=== PATIENT | female | born 1965 | race Caucasian/White ===

== ENCOUNTER 2024-01-02 12:03 | Observation (INO) | payer OTHER ==
[2024-01-02] MEDS ORDERED: FAMOTIDINE 20 MG/50 ML IVPB 20 MG/50 ML MG IVPB ONE (13:22)
[2024-01-02] MEDS ORDERED: METOCLOPRAMIDE HCL INJECTION 10 MG/2 ML VIAL ONE (13:22)
[2024-01-02] MEDS: LACTATED RINGERS SOLUTION 1000 ML INFUS.BAG IV ONE (13:41)
[2024-01-02] MEDS: METOCLOPRAMIDE HCL INJECTION 10 MG/2 ML VIAL IVPB ONE (13:41)
[2024-01-02] MEDS: FAMOTIDINE 20 MG/50 ML IVPB 20 MG/50 ML MG IVPB ONE (13:41)
[2024-01-02 13:53] LABS: BASO % 0.6 % (0-2.0); EOS % 0.4 % (0-4.5); HEMATOCRIT 40.9 % (32.4-45.2); HEMOGLOBIN 13.6 GM/dL (10.7-15.3); LYMPH % 16.9 % (8-40); MCH 29.2 pg (25.7-33.7); MCHC 33.3 g/dl (32.0-36.0); MEAN CELL VOLUME 87.7 fl (80-96); MEAN PLT VOLUME 8.3 fl (7.5-11.1); MONO % 4.2 % (3.8-10.2); NEUT % 77.9 % (42.8-82.8); PLATELET COUNT 234 10^3/uL (134-434); RBC 4.66 M/mm3 (3.60-5.2); RDW 14.2 % (11.6-15.6); WHITE BLOOD COUNT 5.9 K/mm3 (4.0-10.0)
[2024-01-02 13:54] LABS: URINE APPEARANCE CLEAR; URINE BILIRUBIN NEGATIVE (NEGATIVE); URINE COLOR YELLOW; URINE GLUCOSE (UA) NEGATIVE (NEGATIVE); URINE KETONE NEGATIVE (NEGATIVE); URINE LEUK ESTERASE NEGATIVE (NEGATIVE); URINE NITRITE NEGATIVE (NEGATIVE); URINE PROTEIN NEGATIVE (NEGATIVE); URINE UROBILINOGEN 0.2 mg/dL (0.2-1.0)
[2024-01-02 14:00] LABS: INR 2.66 (0.83-1.09); PROTHROMBIN TIME (PATIENT) 30.6 SEC (9.7-13.0)
[2024-01-02 14:03] LABS: ACTIVATED PTT 47.1 SECONDS (25.2-36.5)
[2024-01-02 14:04] LABS: POTASSIUM 3.9 mmol/L (3.5-5.1)
[2024-01-02 14:07] LABS: CALCIUM 9.6 mg/dL (8.5-10.1)
[2024-01-02 14:08] LABS: ALBUMIN 4.1 g/dl (3.4-5.0); BLOOD UREA NITROGEN 13.5 mg/dL (7-18)
[2024-01-02 14:11] LABS: CREATININE 0.7 mg/dL (0.55-1.3)
[2024-01-02 14:12] LABS: BILIRUBIN,TOTAL 0.9 mg/dL (0.2-1); TOT PROT 7.8 g/dl (6.4-8.2)
[2024-01-02] MEDS ORDERED: MECLIZINE HCL 25 MG TABLET (FP) ONE (14:54)
[2024-01-02] MEDS: MECLIZINE HCL 25 MG TABLET (FP) PO ONE (15:23)
[2024-01-02] MEDS ORDERED: MECLIZINE HCL 25 MG TABLET (FP) PO PRN (17:21)
[2024-01-02] MEDS ORDERED: ONDANSETRON 4 MG/2 ML VIAL IVPUSH PRN (17:21)
[2024-01-02] MEDS: SODIUM CHLORIDE 0.45% 1,000 ML IV SCH (18:05)
[2024-01-02] MEDS ORDERED: WARFARIN NA 1 MG TABLET ONE (19:08)
[2024-01-02] MEDS: WARFARIN NA 2 MG TABLET PO SCH (19:10)
[2024-01-02] MEDS: ATORVASTATIN CA 40 MG TABLET (FP) PO SCH (21:41)
[2024-01-03 00:58] VITALS: RESP 18; BMI 23.3
[2024-01-03 07:18] LABS: BASO % 0.9 % (0-2.0); HEMOGLOBIN 11.9 GM/dL (10.7-15.3); INR 3.12 (0.83-1.09); MCH 29.8 pg (25.7-33.7); MCHC 34.1 g/dl (32.0-36.0); MEAN CELL VOLUME 87.4 fl (80-96); MEAN PLT VOLUME 8.6 fl (7.5-11.1); MONO % 7.6 % (3.8-10.2); NEUT % 52.5 % (42.8-82.8); PLATELET COUNT 206 10^3/uL (134-434); PROTHROMBIN TIME (PATIENT) 35.8 SEC (9.7-13.0); RDW 14.2 % (11.6-15.6)
[2024-01-03 07:28] LABS: POTASSIUM 3.8 mmol/L (3.5-5.1)
[2024-01-03 07:33] LABS: BLOOD UREA NITROGEN 17.9 mg/dL (7-18); CALCIUM 8.6 mg/dL (8.5-10.1)
[2024-01-03 07:36] LABS: CREATININE 0.7 mg/dL (0.55-1.3)
[2024-01-03 07:37] LABS: BILIRUBIN,TOTAL 0.6 mg/dL (0.2-1)
[2024-01-03 07:38] LABS: TOT PROT 6.1 g/dl (6.4-8.2)
[2024-01-03 07:41] LABS: CHOLESTEROL 172 mg/dL (50-200)
[2024-01-03 07:42] LABS: LDL CHOLESTEROL (ONLY SJRH) 106 mg/dL (5-100)
[2024-01-03 07:44] LABS: HDL CHOLESTEROL 43 mg/dL (40-60)
[2024-01-03 08:00] LABS: ALBUMIN 3.1 g/dl (3.4-5.0)
[2024-01-03] MEDS: amLODIPine BESYLATE 5 MG TABLET (FP) PO SCH (09:21)
[2024-01-03] MEDS: PANTOPRAZOLE 40 MG TABLET PO ONE (12:23)
[2024-01-03 12:34] VITALS: TEMP 98.2
[2024-01-03 18:14] VITALS: BP 126/69; PULSE 74
== END 2024-01-03 18:36 | disposition home or self-care (01) ==
LOC: JER 12:03 → JERBED 16:35 → J4W 20:08
PROVIDERS: ADMIT Internal Medicine; ATTEND Internal Medicine
PROC: 3E033GC Introduction of Other Therapeutic Substance into Peripheral Vein, Percutaneous Approach (ICD-10-PCS; principal; 2024-01-02)
PROC: 3E0337Z Introduction of Electrolytic and Water Balance Substance into Peripheral Vein, Percutaneous Approach (ICD-10-PCS; 2024-01-02)
DX: R42 Dizziness and giddiness (principal); I10 Essential (primary) hypertension; E78.5 Hyperlipidemia, unspecified; R01.1 Cardiac murmur, unspecified; Z95.4 Presence of other heart-valve replacement; Z79.01 Long term (current) use of anticoagulants
CPT/HCPCS: 0241U-QW; 36415; 70450-TC; 70496-TC; 70498-TC; 71045-TC-FY; 80053; 80061; 81003; 84439; 84443; 84484; 85025; 85610; 85730; 87086; 93005; 93010; 96361; 96365; 96375; 99285-25; G0378